=== PATIENT | female | born 1995 | race Caucasian/White ===

== ENCOUNTER 2018-08-21 06:30 | Day surgery (SDC) | payer SELFPAY ==
[2018-08-18 12:58] VITALS: BMI 20.9
[2018-08-21] MEDS ORDERED: LIDOCAINE HCL 1% PRESERVATIVE FREE - 30ML VIAL ONE (07:16)
[2018-08-21] MEDS ORDERED: BUPIVACAINE HCL/PF 2.5 MG/ML - 30 ML VIAL IJ ONE (07:16)
[2018-08-21] MEDS ORDERED: BACITRACIN 15 GM TUBE TOPICAL OINTMENT ONE (07:16)
[2018-08-21] MEDS ORDERED: ISOSULFAN BLUE 10 MG/ML VIAL SQ ONE (07:16)
[2018-08-21] MEDS ORDERED: LIDOCAINE 1%/EPI 1:100000 (20 ML MULTI DOSE VIAL) ONE (07:17)
[2018-08-21] MEDS ORDERED: PROPOFOL 20 ML ONE (07:59)
[2018-08-21] MEDS ORDERED: MIDAZOLAM HCL 2 MG/2 ML SINGLE DOSE VIAL ONE (07:59)
[2018-08-21] MEDS ORDERED: LIDOCAINE HCL/PF 2% SDV 5ML VIAL ONE (08:00)
[2018-08-21] MEDS ORDERED: ceFAZolin SODIUM 1 GM VIAL ONE (08:18)
[2018-08-21] MEDS ORDERED: SODIUM CHLORIDE 0.9% P/F 10 ML VIAL IJ ONE (08:18)
[2018-08-21] MEDS ORDERED: ONDANSETRON 4 MG/2 ML VIAL ONE (08:21)
[2018-08-21] MEDS ORDERED: DEXAMETHASONE SOD PHOSPHATE 4 MG/1 ML VIAL ONE (08:21)
[2018-08-21] MEDS ORDERED: KETOROLAC TROMETHAMINE 30 MG/1 ML VIAL ONE (09:25)
[2018-08-21] MEDS ORDERED: PROMETHAZINE HCL 25 MG/1 ML VIAL IVPUSH PRN (09:48)
[2018-08-21] MEDS ORDERED: oxyCODONE HCL 5 MG TABLET PO PRN (09:48)
[2018-08-21] MEDS ORDERED: ONDANSETRON 4 MG/2 ML VIAL IVPUSH PRN (09:48)
[2018-08-21] MEDS ORDERED: LACTATED RINGERS SOLUTION 1,000 ML IV SCH (10:00)
[2018-08-21 12:11] VITALS: TEMP 98.1
[2018-08-21 12:13] VITALS: BP 105/68; PULSE 92
--- NOTE | 2018-08-26 12:47 | PATH ---
Surgical Pathology Report Patient Name: CATALINA REID [facility]. Rec. #: [id number] /Age/Gender: 1995 (Age: 23) / F Account: [id number] Location: [facility] AMBULATORY Taken: 08/21/2018 Received: 08/21/2018 Reported: 08/26/2018 Physicians: Kenzie Pinedo M.D. Specimen(s) Received A: LEFT NIPPLE B: RIGHT NIPPLE Clinical History Cosmetic Final Diagnosis A. NIPPLE, LEFT, REDUCTION: NIPPLE WITH NO PATHOLOGIC FINDINGS. B. NIPPLE, RIGHT, REDUCTION: NIPPLE WITH NO PATHOLOGIC FINDINGS. Electronically Signed Lakeshia Whitmore M.D. Gross Description A. Received in formalin labeled "left nipple," a 1.1 x 1.0 x 0.7 cm unoriented nipple. The base is inked green and the specimen is serially sectioned. The specimen is entirely submitted in one cassette. B. Received in formalin labeled "right nipple," is a 1.1 x 1.0 x 0.7 cm unoriented nipple. The base is inked green and the specimen is serially sectioned. The specimen is entirely submitted in one cassette. 08/24/2018 [facility]08/24/2018
== END 2018-08-21 11:00 | disposition home or self-care (01) ==
LOC: FASU 06:30
PROVIDERS: ATTEND Surgery
PROC: 0HQW0ZZ Repair Right Nipple, Open Approach (ICD-10-PCS; 2018-08-21)
PROC: 0HQX0ZZ Repair Left Nipple, Open Approach (ICD-10-PCS; principal; 2018-08-21 08:40)
DX: Z41.1 Encounter for cosmetic surgery (principal)
CPT/HCPCS: 84703; 88304-TC; 94760